=== PATIENT | male | born 1985 | race Caucasian/White ===

== ENCOUNTER 2016-08-28 21:12 | Emergency (ER) | payer BC ==
[2016-08-28 21:27] VITALS: BP 130/76
--- NOTE | 2016-08-28 21:51 | ERNOTE ---
Lower Extremity HPI - General Lower Extremities Pain: ankle: right Time Seen by Provider: 08/28/16 21:38 Source: patient Exam Limitations: no limitations - Immun/Allergies/Home Medications Allergies/Adverse Reactions: Allergies Allergy/AdvReac Type Severity Reaction Status Date / Time pertussis vaccine,adsorbed Allergy Intermediate Hives Verified 03/06/14 18:15 [Pertussis Vaccine,Adsorbed] Home Medications: HOME MEDICATIONS NK [No Home Medication] 10/26/13 [Last Taken Unknown] - History of Present Illness Narrative: PAtient jumped off a trailer on uneven ground and twisted his right ankle, was able to ambulate to ER, denies any other injuries. Date (Duration): 08/28/16 Time (Timing): 20:45 Occurred: just prior to arrival Location of Incident: home Method of Injury: Reports: twisted Loss of Consciousness: Reports: no loss of consciousness Associated Symptoms: Denies: unable to bear weight Other Injuries: Reports: none Subsequent Symptoms: Denies: sensory loss, numbness, motor loss Review of Systems - Review of Systems Constitutional: Absent: recent illness, fever Respiratory: Absent: shortness of breath, other Gastrointestinal/Abdominal: Absent: nausea Musculoskeletal: Present: See HPI Neurological: Absent: weakness, numbness - Patient's Past Medical History Patient History - Medical: No pertinent hx Patient History - Cardiac/Respiratory: No pertinent hx Patient History - Cancer: No Hx of Cancer Patient History - Surgical Procedures: Appendectomy - Social History Living Situations: home Psych History: No pertinent hx Smoking Status: Current every day smoker Alcohol Use: none Drug Use: none Physical Exam - Physical Exam General Appearance: Present: wd/wn, alert, no apparent distress Respiratory: Present: no respiratory distress, normal breath sounds, lungs clear Cardiovascular/Chest: Present: regular rate, rhythm, no murmur Extremity Exam: Present: normal except - - minimal tenderness over lateral malleolus, no swelling, no deformity Neurological Exam: Present: alert, oriented, normal mood/affect, no motor/ sensory deficits Skin Exam: Present: normal color, warm/dry ED Progress - Vital Signs Patient's Vital Signs:: I have reviewed the patient's vital signs. Vital Signs: Vital Signs 08/28/16 21:20 Temperature 37.1 C Respiratory 12 Rate Blood Pressure 130/76 O2 Sat by Pulse 98 Oximetry - X-Ray X-Ray #1 X-Ray: ankle - no fracture Interpretation: Interp. by me - Progress/Reassessment Chief Complaint: Ankle Injury/ Pain Progress Note-Subjective: 08/28/16 21:47 discussed Xray results Departure Clinical Impression: Right ankle sprain Qualifiers: Encounter type: initial encounter Involved ligament of ankle: unspecified ligament Qualified Code(s): S93.401A - Sprain of unspecified ligament of right ankle, initial encounter - Departure Disposition: Home self-care Condition: Good Instructions: Ankle Sprain, [id number] Additional Instructions: use ibuprofen as needed for pain Referrals: Donis An MD [Staff Physician] - (as needed)
== END 2016-08-28 21:51 | disposition home or self-care (01) ==
LOC: ER 21:12
DX: S93.401A Sprain of unspecified ligament of right ankle, initial encounter (principal); X58.XXXA Exposure to other specified factors, initial encounter; Y93.39 Activity, other involving climbing, rappelling and jumping off; Y92.007 Garden or yard of unspecified non-institutional (private) residence as the place of occurrence of the external cause